=== PATIENT | male | born 1995 | race Caucasian/White ===

== ENCOUNTER 2017-03-27 10:12 | Emergency (ER) | payer SELFPAY ==
[~2017-03-27] VITALS: Ht 167.6 cm; Wt 104.5 kg
[2017-03-27 10:15] VITALS: Ht 167.6 cm; Wt 104.5 kg
[2017-03-27] MEDS ORDERED: ACETAMINOPHEN 325 MG TAB PO STA (10:37)
--- NOTE | 2017-03-27 11:53 | RADRPT ---
PROCEDURE: CT brain without contrast CLINICAL INDICATION: Headache off and on, pain temporal occipital area TECHNIQUE: CT of the brain without contrast was performed on a multidetector CT scanner, with multi planar reformats. One or more of the following dose reduction techniques were used: Automated expos ure control, adjustment in mA and / or kV according to patient size, use of iterative reconstructive technique. CTDIvol = 44 mGy; DLP = 630 mGy-cm. COMPARISON: None available FINDINGS: No acute intracranial hemorrhage is identified. No extra-axial fluid collection is seen. There is no mass effect. No midline shift is identified. Ventricles and sulci are within normal limits for size and configuration. The density of the brain is within normal limits. Marin-white differentiation is preserved. Calvarium and skull base are intact. Mastoid air cells and imaged paranasal sinuses grossly clear. RPTAT: VV IMPRESSION: Unremarkable noncontrast CT of the brain. .Alejo Connolly MD, MD Date Time Electronically viewed and signed by .Alejo Connolly MD, on 03/27/2017 11:52 .O/
[2017-03-27] MEDS ORDERED: ACET500C5 PO (11:57)
[2017-03-27] MEDS ORDERED: FLUT9.9S NASAL (11:57)
--- NOTE | 2017-03-27 12:51 | ERD ---
ER Documentation Chief Complaint Date/Time DATE: 03/27/17 TIME: 12:47 Chief Complaint Complains of a headache and nosebleed x 3 days HPI this a 21-year-old male presenting to the emergency department presents to the emergency department complaining of out of 10 intermittent right-sided head, nausea for the past 2 days. States that he has been getting a lot of nosebleeds recently. Patient denies taking any medications for this. Denies any vision changes, vomiting, neuro deficits ROS All systems reviewed and are negative except as per history of present illness. Medications Home Meds Active Scripts Fluticasone Propionate (Flonase Allergy Relief) 9.9 Ml [place].susp, 1 SPRAY NASAL BID, #1 BOTTLE TO EACH NOSTRIL Prov:NEIL GARCIA PA-C 03/27/17 Acetaminophen* (Tylophen*) 500 Mg Capsule, 1 CAP PO Q4 Y for PAIN AND OR ELEVATED TEMP, #30 CAP Prov:NEIL GARCIA PA-C 03/27/17 Allergies Allergies: Coded Allergies: No Known Allergy (Unverified , 10/07/14) PMhx/Soc Medical and Surgical Hx: pt denies Medical Hx, pt denies Surgical Hx Hx Alcohol Use: No Hx Substance Use: No Hx Tobacco Use: No Smoking Status: Never smoker Physical Exam Vitals Vital Signs Date Time Temp Pulse Resp B/P Pulse Ox O2 Delivery O2 Flow Rate FiO2 03/27/17 10:15 98.2 68 20 161/85 99 Physical Exam GENERAL: well-developed/well-nourished, in no apparent distress, non-toxic appearing HENT: NC/AT, bilateral tympanic membrane is normal with good cone of light, nares patent, oropharynx clear without exudates EYES: Conjunctiva normal, PERRLA, EOMI, no nystagmus noted NECK: Supple, no lymphadenopathy PULM: CTA bilaterally, no rales, rhonchi, or wheezing heard CV: Normal S1S2, RRR, good capillary refill GI: Soft, non-distended, normal bowel sounds, non-tender BACK: No midline tenderness, no masses, No CVAT EXT: No clubbing, cyanosis, or edema NEURO: Alert and orientated to person, place, and time. CN II-IIX intact. Gait and coordination were normal. Hand label designer strength were equal and within normal limits SKIN: Intact, normal turgor PSYCH: Normal mood and mentation, patient denied SI Results 24 hrs Current Medications Medications (Trade) Dose Ordered Sig/Miguel Route PRN Reason Start Time Stop Time Status Last Admin Dose Admin Acetaminophen (Tylenol Tab) 650 mg ONCE STAT PO 03/27/17 10:37 03/27/17 10:38 DC 03/27/17 10:49 Procedures/MDM 21-year-old male presents with headache and history of epistaxis. My differential diagnoses include tension, migraine, and cluster headache, overuse medication headache, subarachnoid hemorrhage, meningitis, stroke. Pain relief was given in the ED with some improvement. Neurology exam was normal, CT scan of the head any evidence of acute pathology.hemodynamically stable and neurovascularly intact. Prescriptions Tylenol and Flonase were given. Discussed to follow up with a primary care physician in the next couple days. Return to the ER if condition worsens or not improving as expected. Patient agreed and understood this plan. Departure Diagnosis: Primary Impression: Headache Condition: Stable Patient Instructions: Self-Care for Headaches, Epistaxis (Adult) Referrals: NO PRIMARY,CARE PHYSICIAN (PCP) Additional Instructions: FOLLOW UP WITH YOUR PRIMARY CARE PHYSICIAN TOMORROW.Return to this facility if you are not improving as expected. Return to this facility if you are not improving as expected. NEIL GARCIA PA-C Mar 27, 2017 12:51
== END 2017-03-27 12:22 | disposition home or self-care (01) ==
LOC: FTE 10:12
DX: R51 Headache (principal)
CPT/HCPCS: 70450